=== PATIENT | female | born 1935 | race Hispanic/Latino ===

== ENCOUNTER 2016-11-24 01:31 | Emergency (ER) | payer MEDICARE, OTHER ==
[2016-11-24 01:54] VITALS: BP 125/57; PULSE 55; RESP 18; TEMP 97.6; O2SAT 99
--- NOTE | 2016-11-24 02:03 | ED PDOC ---
HPI: Back Time Seen by Provider: 11/24/16 01:38 Chief Complaint (Nursing): Back Pain Chief Complaint (Provider): right sided back pain History Per: Patient, Family (son ) History/Exam Limitations: no limitations Onset/Duration Of Symptoms: Days Current Symptoms Are (Timing): Still Present Additional Complaint(s): 81yo female diagnosed with shingles 1 month ago and placed on antivirals and tramadol presents to the ED with c/o right sided back pain. Son states patient finished both medications last week and went to see neurologist yesterday who gave Rx for gabapentin which has provided no relief. Son called the office who told patient to take Tylenol which has not improved symptoms. Patient has been up all night due to pain. Past Medical History Reviewed: Historical Data, Nursing Documentation, Vital Signs Vital Signs: Last Vital Signs Temp 97.6 F 11/24/16 01:45 Pulse 55 L 11/24/16 01:45 Resp 18 11/24/16 01:45 BP 125/57 L 11/24/16 01:45 Pulse Ox 99 11/24/16 01:45 - Medical History Other PMH: shingles - Surgical History Surgical History: No Surg Hx - Family History Family History: States: No Known Family Hx - Home Medications Home Medications: Ambulatory Orders Medication Instructions Recorded traMADol [Ultram] 50 mg PO Q6 #12 tab 11/24/16 - Allergies Allergies/Adverse Reactions: Allergies Allergy/AdvReac Type Severity Reaction Status Date / Time No Known Allergies Allergy Verified 11/24/16 01:54 Review of Systems ROS Statement: Except As Marked, All Systems Reviewed And Found Negative Musculoskeletal: Positive for: Back Pain (right sided ) Physical Exam - Reviewed Nursing Documentation Reviewed: Yes Vital Signs Reviewed: Yes - Physical Exam Appears: Positive for: Well, No Acute Distress Head Exam: Positive for: ATRAUMATIC, NORMAL INSPECTION, NORMOCEPHALIC Skin: Positive for: Warm, Dry, Rash (healing dermatomal rash to right upper back extending across front right rib cage ) Eye Exam: Positive for: Normal appearance, EOMI, PERRL ENT: Positive for: Normal ENT Inspection Neck: Positive for: Normal, Painless ROM, Supple Cardiovascular/Chest: Positive for: Regular Rate, Rhythm. Negative for: Murmur , Tachycardia Respiratory: Positive for: Normal Breath Sounds. Negative for: Wheezing, Respiratory Distress Gastrointestinal/Abdominal: Positive for: Normal Exam, Soft. Negative for: Tenderness Back: Positive for: Normal Inspection. Negative for: L CVA Tenderness, R CVA Tenderness, Vertebral Tenderness Extremity: Positive for: Normal ROM. Negative for: Deformity, Swelling Neurologic/Psych: Positive for: Alert, Oriented - ECG O2 Sat by Pulse Oximetry: 99 Pulse Ox Interpretation: Normal (RA) Medical Decision Making Medical Decision Makin: Impression: zoster Discussed with patient and family regarding narcotic prescription potential for addiction and alternative medications. [employer] will be checked. Will prescribe short course of tramadol for patient and advise f/u w/ neurology. Patient stable for d/c and return precautions given. Scribe Attestation: Documented by Jes Woody acting as a scribe for Geraldo Hoffman MD. Provider Scribe Attestation: All medical record entries made by the Scribe were at my direction and personally dictated by me. I have reviewed the chart and agree that the record accurately reflects my personal performance of the history, physical exam, medical decision making, and the department course for this patient. I have also personally directed, reviewed, and agree with the discharge instructions and disposition. Disposition - Clinical Impression Clinical Impression: Z[facility] - Patient ED Disposition Is Patient to be Admitted: No - Disposition Referrals: Anthony Juares MD [Medical Doctor] - Rightzachariah,Smooth Franco MD [Primary Care Provider] - Disposition: Routine/Home Disposition Time: 02:00 Condition: STABLE Prescriptions: traMADol [Ultram] 50 mg PO Q6 #12 tab Instructions: [place] (ED)
== END 2016-11-24 05:00 | disposition home or self-care (01) ==
LOC: H.ER 01:31
DX: B02.9 Zoster without complications (principal)